=== PATIENT | male | born 1975 | race Caucasian/White ===

== ENCOUNTER 2025-07-11 17:11 | Emergency (ER) | payer OTHER, SELFPAY ==
[2025-07-11 17:25] VITALS: BP 140/93
[2025-07-11 17:28] VITALS: BMI 32.7
[2025-07-11 21:40] VITALS: BP 153/97
[2025-07-11] MEDS: NSS 1000 IV (21:44)
[2025-07-11 21:55] LABS: Hematocrit 43.5 % (39.0-52.0); Hemoglobin 15.2 g/dL (13.0-18.0); Mean Corp Hgb Conc. 34.9 g/dL (33.0-37.0); Mean Corpuscular Volume 91.0 fL (80.0-94.0); Nucleated Red Blood Cells % 0 % (-); Platelet Count 217 10^3/uL (130-400); Red Cell Dist. Width 11.6 % (11.5-14.5)
[2025-07-11 22:00] VITALS: BP 146/89
[2025-07-11 22:07] LABS: ALT (SGPT) 210 U/L (0-50); AST (SGOT) 165 U/L (17-59); Albumin 4.5 g/dl (3.5-5.0); Alkaline Phosphatase 79 U/L (38-126); Blood Urea Nitrogen 8 mg/dl (9-20); Calcium 9.1 mg/dl (8.4-10.2); Carbon Dioxide 28 mmol/L (22-30); Chloride 101 mmol/L (98-107); Estimated Creatinine Clearance > 125 ml/min; Glucose 107 mg/dl (70-99); Lipase 90 U/L (23-300); Potassium 3.9 mmol/L (3.5-5.1); Sodium 135 mmol/L (135-145); Total Protein 7.9 g/dl (6.3-8.2); eGFR > 60.00
--- NOTE | 2025-07-11 22:22 | ED.GENMED ---
History of Present Illness
<Slick Estrella DO, Resident - Last Filed: 07/11/25 23:43>
General
Chief Complaint: Abdominal Pain
Source: patient
Exam Limitations: none
Time Seen by Provider: 07/11/25 22:02
Nursing documentation reviewed up to this point in time: agreed with
History of Present Illness
History of Present Illness:
Ayan Peralta is a 49M with PMHx of nephrolithiasis (1 episode 10 years ago) who is presenting with 2 days of abdominal pain in fever. States he was in his usual state of health until 2 days ago. Notes the only thing of the ordinary that day was that
he ate an unusual number of protein bars. States abdominal pain came out of nowhere and progressively worsened. Pain originally on the right side of the abdomen, and then moved to the left side. Describes it as a tenderness. States that is better
today. At its worst, severity was a 6 out of 10, now a 2 out of 10. Denies palliative and provocative factors. States that on the drive here did not experience worsening of pain with bumps in the road. Notes 1 sick contact, daughter, who had the
flu, however patient does not have any respiratory symptoms. Otherwise only endorses a minor headache. Denies dysphagia, dyne aphasia, acid reflux, nausea, vomiting, constipation, urinary symptoms. 1 episode of small-volume diarrhea prior to
arrival, however no other changes in bowel habits.
Past History
<Slick Estrella DO, Resident - Last Filed: 07/11/25 23:43>
Past History
ED Past Medical History: Psychiatric and Other (Nephrolithiasis (1 episode 10 years ago.))
ED Past Surgical History: None
Social History
Tobacco: Non-smoker
Alcohol: None
Drug: None
Review of Systems
<Slick Estrella DO, Resident - Last Filed: 07/11/25 23:43>
Review of Systems
Allergies reviewed?: Yes
All Other Systems: ROS reviewed and negative except as documented in HPI and ROS
Phy Exam
<Slick Estrella DO, Resident - Last Filed: 07/11/25 23:43>
Physical Exam
Physical Exam:
General: Well-developed, well-nourished male in no acute distress. No jaundice.
HEENT: Normocephalic, atraumatic, sclera anicteric, EOMI
CV: Regular rate and rhythm, no murmurs, rubs, gallops. No JVD.
Lungs: Clear to auscultation bilaterally, no wheezing, no rales, no rhonchi
Abdomen: Soft, nondistended, nontender to palpation in all 4 quadrants. No McBurney's point tenderness, no Rose sign, no Rovsing sign, no psoas sign, no obturator sign.
: No CVA tenderness
MSK: No clubbing, no cyanosis, no edema
Neuro: Alert, oriented, no acute distress
Psych: Calm, normal affect
Course
<Slick Estrella DO, Resident - Last Filed: 07/11/25 23:43>
Orders/Labs/Results
Orders:
Orders
07/11/25 17:32
CT Abd/Pel (IV only)-DH only Urgent
Comment:
Reason For Exam: left sided abd pain with fevers
07/11/25 21:35
IV Insert/Care/Rem.- Treatment PRN
Urinalysis Reflex To Culture Urgent
Date Specimen was Collected: 07/11/25
Time Specimen was Collected: 21:35
07/11/25 21:41
Complete Blood Count/With Diff Urgent
Comprehensive Metabolic Panel Urgent
Lactic Acid Urgent
Lipase Urgent
07/11/25 21:43
0.9% Sodium Chloride 1000 ml [Nss] 1,000 ml IV BOLUS
07/11/25 23:15
LevoFLOXacin [Levaquin] 500 mg PO NOW STA
MetroNIDAZOLE [Flagyl] 500 mg PO NOW STA
Abnormal Lab Results
07/11/25
21:41
WBC 15.7 H 10^3/uL
(4.8-10.8)
MCH 31.8 H pg
(27.0-31.0)
MPV 10.5 H fL
(7.4-10.4)
Absolute Neuts (auto) 10.9 H 10^3/uL
(1.4-6.5)
Absolute Monos (auto) 2.1 H 10^3/uL
(0.1-0.6)
Lymphocytes % 16.3 L %
(20.5-51.1)
Monocytes % 13.4 H %
(1.7-9.3)
BUN 8 L mg/dl
(9-20)
Glucose 107 H mg/dl
(70-99)
Total Bilirubin 1.4 H mg/dl
(0.2-1.3)
AST 165 H U/L
(17-59)
ALT 210 H U/L
(0-50)
07/11/25 21:41
07/11/25 21:41
Vital Signs
Initial and Last Documented VS:
Initial Vital Signs
Temp Pulse Resp BP Pulse Ox
99.0 F 120 18 140/93 99
07/11/25 17:25 07/11/25 17:25 07/11/25 17:25 07/11/25 17:25 07/11/25 17:25
Last Documented Vital Signs
Temp Pulse Resp BP Pulse Ox
100.0 F 120 18 146/89 99
07/11/25 21:41 07/11/25 17:25 07/11/25 17:25 07/11/25 22:00 07/11/25 22:26
Chandrakantlt;Sandra Donovan DO - Last Filed: 07/11/25 23:30>
Orders/Labs/Results
Orders:
Orders
07/11/25 17:32
CT Abd/Pel (IV only)-DH only Urgent
Comment:
Reason For Exam: left sided abd pain with fevers
07/11/25 21:35
IV Insert/Care/Rem.- Treatment PRN
Urinalysis Reflex To Culture Urgent
Date Specimen was Collected: 07/11/25
Time Specimen was Collected: 21:35
07/11/25 21:41
Complete Blood Count/With Diff Urgent
Comprehensive Metabolic Panel Urgent
Lactic Acid Urgent
Lipase Urgent
07/11/25 21:43
0.9% Sodium Chloride 1000 ml [Nss] 1,000 ml IV BOLUS
07/11/25 23:15
LevoFLOXacin [Levaquin] 500 mg PO NOW STA
MetroNIDAZOLE [Flagyl] 500 mg PO NOW STA
Abnormal Lab Results
07/11/25
21:41
WBC 15.7 H 10^3/uL
(4.8-10.8)
MCH 31.8 H pg
(27.0-31.0)
MPV 10.5 H fL
(7.4-10.4)
Absolute Neuts (auto) 10.9 H 10^3/uL
(1.4-6.5)
Absolute Monos (auto) 2.1 H 10^3/uL
(0.1-0.6)
Lymphocytes % 16.3 L %
(20.5-51.1)
Monocytes % 13.4 H %
(1.7-9.3)
BUN 8 L mg/dl
(9-20)
Glucose 107 H mg/dl
(70-99)
Total Bilirubin 1.4 H mg/dl
(0.2-1.3)
AST 165 H U/L
(17-59)
ALT 210 H U/L
(0-50)
07/11/25 21:41
07/11/25 21:41
Vital Signs
Initial and Last Documented VS:
Initial Vital Signs
Temp Pulse Resp BP Pulse Ox
99.0 F 120 18 140/93 99
07/11/25 17:25 07/11/25 17:25 07/11/25 17:25 07/11/25 17:25 07/11/25 17:25
Last Documented Vital Signs
Temp Pulse Resp BP Pulse Ox
100.0 F 120 18 146/89 99
07/11/25 21:41 07/11/25 17:25 07/11/25 17:25 07/11/25 22:00 07/11/25 22:26
<Slick Estrella DO, Resident - Last Filed: 07/11/25 23:43>
MDM/Problems Addressed
Differential Diagnosis Includes:
Appendicitis, Pancreatitis, Diverticulitis, Choledocholithiasis, Nephrolithiasis, Pyelonephritis
MDM/Problems Addressed:
49-year old male with past medical history of 1 episode of nephrolithiasis 10 years ago presenting with 2 days of fevers and abdominal pain. Physical exam largely benign, but patient with low-grade fever despite Tylenol dose [employer] and WBC 15K. LFTs
elevated. Urines pending. Will order CT Abdomen and Pelvis w/ IV contrast, consider RUQ US pending CT results.
CT Abd/Pelv showing mild diverticulitis of the proximal descending colon, which appropriately correlates with patient history. No evidence of perforation or abscess. Also shows mild hepatic fatty infiltration and normal gallbladder, which could
explain patient's abnormal LFTs. Low clinical suspicion for gallbladder disease, but patient should follow up in the outpatient setting for work up of abnormal LFTs.
Patient notes that he has been told about abnormal LFTs by PCP, and he is due to follow up with PCP in July for this. Also sees GI. Colonoscopy 6 years ago removed a couple of polyps and told to f/u in 5 years.
Will discharge the patient on Flagyl and Levaquin due to questionable history of abx allergies. OTC PRN pain meds. Bowel rest recommended. Follow up with primary care provider and or GI for further recommendations. Return to ER if there is worsening
abdominal pain or fevers.
<Slick Estrella DO, Resident - Last Filed: 07/11/25 23:43>
*Pulse Oximetry
SaO2: 99
Oxygen Mode of Delivery: Room air
<Sandra Donovan DO - Last Filed: 07/11/25 23:30>
*Radiology
Radiology exam reviewed: radiology read reviewed
*Pulse Oximetry
Patient hypoxic: no
*Critical Care Note
Total Time (30-74mins, 75-104mins- exclusive of procedures): Not Applicable
ED Attending Note
<Slick Estrella DO, Resident - Last Filed: 07/11/25 23:43>
-
Portions of this chart may have been created with voice recognition software.� Occasional wrong word or��sound alike� substitutions may have occurred due to the inherent limitations of voice recognition software.
<Sandra Donovan DO - Last Filed: 07/11/25 23:30>
ED Attending Note
Patient seen and examined by attending physician: Yes
I performed a history and physical exam of patient and discussed management with resident, I reviewed resident's note and agree with documented findings and plan of care.: Yes
ED Attending Note:
This is a 49-year-old gentleman with no significant past medical history save for remote history of kidney stones as well as more recently noted to have elevated LFTs on routine blood work.
He presents with 2-day history of abdominal pain accompanied with fever. Abdominal pain primarily left-sided. Symptoms have slowly progressed over the past 2 days with Tmax of 102.5 �F this afternoon. He took Tylenol around 4:30 PM. Fever and
pain have markedly improved.
No history of similar episodes in the past. No flank pain nor back pain. No dysuria urgency and or hematuria. No nausea or vomiting. He did pass 1 loose stool earlier today otherwise bowel movements have been normal.
He underwent routine screening colonoscopy approximately 6 months ago, 2-3 benign polyps removed with recommendations for repeat colonoscopy in 5 years.
His only daily medication is sertraline. Denies alcohol use.
He does note recent change in diet has been consuming a fair amount of nuts as well as nut containing protein bars over the past week.
49-year-old overweight gentleman appears his stated age, bright alert, pleasant, appears in no acute distress. Low-grade fever noted initially. Currently 99 �F. Last dose of antipyretic 4:30 PM.
Heart is regular rate and rhythm.
Lungs are clear to auscultation. No respiratory distress.
Abdomen is rotund, soft, minimal tenderness left lateral abdomen with deep palpation only. No rebound or guarding nor rigidity. No palpable masses. No CVA tenderness. Normoactive bowel sounds.
Concern for acute diverticulitis, pyelonephritis, colitis, pancreatitis, bowel obstruction much less likely.
Labs thus far reveal elevated white blood cell count of 15.7. Chemistries reveal moderately elevated LFTs and mildly elevated bilirubin with normal alkaline phosphatase. Normal lipase. Urinalysis is pending.
Lactic acid is normal.
Currently reports only minimal abdominal pain. Declines pain medication.
Will check CT abdomen pelvis with IV contrast.
23:20
CT shows mild diverticulitis of descending colon. No abscess nor free air. There is note of mild fatty infiltration of the liver. This could certainly be cause for elevated LFTs.
Patient has sulfa allergy and also notes a rash with previous course of amoxicillin. As such we will avoid Augmentin and will treat with a course of Levaquin/Flagyl.
Recommend bowel rest, limiting diet to clear liquids over the next 2 to 3 days then slowly advance to soft bland diet. Recommend avoiding nuts, popcorn, hard candy going forward.
Continue Tylenol versus ibuprofen as needed for fever, pain.
Prompt follow-up with PCP as well as emt p. Return precautions discussed.
Discharge Plan
Departure
Patient Disposition: Home (Routine Discharge)
Date of Disposition: 07/11/25
Time of Disposition: 23:23
Patient with high blood pressure during this ER visit?: Yes
Condition: Good
Discharge Problem:
Acute diverticulitis, Elevated LFTs
Instructions: Clear Liquid Diet, Diverticulitis (DC), BLOOD PRESSURE
Prescriptions:
New
levofloxacin 500 mg tablet
500 mg PO DAILY 7 Days Qty: 7 0RF
metronidazole 500 mg tablet
500 mg PO Q8H 7 Days Qty: 21 0RF
Referrals:
Car Marino MD [Family Provider, [facility]] - Call in 1-3 days for appt
Activity Restrictions/Additional Instructions:
Over the next 2 days, limit your diet to clear liquids only, dairy after advance to soft bland foods as tolerated.
Continue Tylenol versus ibuprofen as needed for fever, pain.
You have been prescribed Levaquin and metronidazole for treatment of acute diverticulitis.
Follow-up with your primary care physician as well as your emt p regarding diverticulitis as well as elevated liver enzymes.
If abdominal pain worsens, especially if no improvement with ibuprofen versus Tylenol or if you develop intractable vomiting, persistent fever or any other worrisome symptom, prompt return to the ED for further evaluation.
Interventions
Interventions:
*General Assessment Last Done: 07/11/25 17:28
*Neglect/Abuse Screening Last Done: 07/11/25 17:28
*ED COVID-19 Vaccine History Last Done: 07/11/25 17:28
*ED Influenza Vaccine History Last Done: 07/11/25 17:28
*Risk Screen - Suicide (C-SSRS) Last Done: 07/11/25 17:28
LB-Inhmkr-Znvvcmptit Assessment Last Done: 07/11/25 22:00
Discharge Date and Time
Print Language: GREENLANDIC
[2025-07-11] MEDS: LEVAQUIN 500 MG PO (23:28)
[2025-07-11] MEDS: FLAGYL 500 MG PO (23:29)
== END 2025-07-11 23:49 | disposition home or self-care (01) ==
LOC: EMR 17:11
PROVIDERS: Emergency Medicine; EMERGENCY PHYSICIAN Emergency Medicine; FAMILY PHYSICIAN Family Medicine
DX: K57.32 Diverticulitis of large intestine without perforation or abscess without bleeding (principal); R79.89 Other specified abnormal findings of blood chemistry; K76.0 Fatty (change of) liver, not elsewhere classified; E66.3 Overweight; Z68.32 Body mass index [BMI] 32.0-32.9, adult; Z87.442 Personal history of urinary calculi; Z88.2 Allergy status to sulfonamides
CPT/HCPCS: 99284; 96360; 74177; 80053; 83605; 83690; 85025; Q9967